=== PATIENT | female | born 1950 | race Caucasian/White ===

== ENCOUNTER 2019-10-15 19:55 | Inpatient (IN) | payer OTHER ==
[~2019-10-15] VITALS: Ht 157.5 cm; Wt 82.9 kg
[2019-10-15 19:59] VITALS: BP 144/59
[2019-10-15] MEDS ORDERED: MUCINEX600 MG PO (20:06)
[2019-10-15] MEDS ORDERED: CELEXA 20 MG TA20 MG PO (20:06)
[2019-10-15] MEDS ORDERED: SUPER THERAVIT1 EACH PO (20:07)
[2019-10-15] MEDS ORDERED: PROBIOTIC1 EAC7 PO (20:07)
[2019-10-15] MEDS ORDERED: VITAMIN D400 UNIT PO (20:07)
[2019-10-15] MEDS ORDERED: VITAMIN C500 M2 PO (20:08)
[2019-10-15 21:09] LABS: ABSOLUTE BASOPHILS 0.1 thou/uL (0.0-0.2); ABSOLUTE EOSINOPHILS 0.1 thou/uL (0.0-0.7); ABSOLUTE LYMPHOCYTES 1.3 thou/uL (0.8-5.3); ABSOLUTE MONOCYTES 0.9 thou/uL (0.0-1.2); ABSOLUTE NEUTROPHILS 11.4 thou/uL (1.6-8.1); BASOPHILS 1.1 %; EOSINOPHILS 0.7 %; HEMATOCRIT 37.8 % (37.0-47.0); HEMOGLOBIN 12.7 gm/dL (12.0-15.0); LYMPHOCYTES 9.3 %; MCH 28.8 pg (26.0-34.0); MCHC 33.6 g/dL (28.0-37.0); MCV 85.8 fL (80.0-100.0); MONOCYTES 6.3 %; MPV 8.7 fl. (7.2-11.1); NUCLEATED RBCS 0 /100WBC; PLATELET COUNT* 433 thou/uL (150-400); POLYS 82.6 %; RBC 4.41 mil/uL (4.20-5.00); RDW-CV 13.5 % (10.5-14.5); WBC 13.8 thou/uL (4.0-11.0)
[2019-10-15 21:19] LABS: INR 1.1; PROTIME 11.2 Seconds (9.20-11.50)
[2019-10-15 21:20] LABS: INFLUENZA A ANTIGEN Negative (Negative); INFLUENZA B ANTIGEN Negative (Negative)
[2019-10-15 22:07] LABS: POTASSIUM 3.1 mmol/L (3.5-5.1)
[2019-10-15 22:08] LABS: ALBUMIN 3.3 g/dL (3.4-5.0); CALCIUM 9.8 mg/dL (8.5-10.1); CREATININE 0.8 mg/dL (0.6-1.3); TOTAL BILIRUBIN 0.5 mg/dL (<0.1-1.0); TOTAL PROTEIN 7.5 g/dL (6.4-8.2)
[2019-10-15 23:15] VITALS: BP 130/77
[2019-10-16] VITALS (7 sets, daily range): BP systolic 114–139; BP diastolic 44–62
[2019-10-16] MEDS ORDERED: PROAIR HFA8.5 GM INH (00:03)
--- NOTE | 2019-10-16 08:22 | NUR ---
REPORT RECEIVED FROM MARGARITO IN ED. PT ARRIVED TO ROOM 228 PER CART. AMBULATED TO BED WITH STEADY GAIT. O2 SAT 90% ON ROOM AIR. PT DID NOT BRING CPAP. PLACED ON 2L O2- WITH O2 SAT AROUND 92%. VERIFIED MEDS AND NURSING ASSESSMENT COMPLETE. MEN'S GARMENT FITTER SAID FOR MEDS TO BE STARTED ON DAYSHIFT. PT WAS ABLE TO REST THROUGH MOST OF NIGHT. CALL LIGHT IN REACH. HOURLY ROUNDING FOR SAFETY.
--- NOTE | 2019-10-16 12:12 | EKG ---
[place] [address] ELECTROCARDIOGRAM REPORT Name: PEARL MARCANO Room: [address] ADM IN M.R.#: [id number] Admission: 10/15/19 Attend Phys: Beka Quiroz Discharge: Date of : 54 Report #: [id number] THIS REPORT FOR: //name// [facility] ED Test Date: 2019-10-15 Test Time: 20:05:16 Pat Name: PEARL MARCANO Department: Room: [facility] Gender: F Sales Floor Team Leader: GIULIANA : 1950 Requested By: Argentina Hicks Order Number: [id number] MD: Delano Glaser Measurements Intervals [place] Rate: 80 P: 61 MN: 130 QRS: 27 QRSD: 89 T: 80 QT: 378 QTc: 436 Interpretive Statements Sinus rhythm Nonspecific repol abnormality, diffuse leads No previous ECG available for comparison Electronically Signed On 10-16-2019 12:12:27 JOURNALISM PROFESSOR by Delano Glaser [email or web address] <ELECTRONICALLY SIGNED> By: Delano Glaser MD, [facility] 10/16/19 1212 04 04 Delano Glaser MD, FACC /EPI
--- NOTE | 2019-10-16 13:34 | NUR ---
ASSUMED CARE OF PT AT 0730. PT RESTING IN BED. A&0X4, COMPLAINS OF HEADACHE-TREATED WITH PRN TYLENOL WITH RELIEF. TRACING SB/SR ON THE BILLBOARD POSTER HELPER. ON 2L NC SAT 95%. COARSE, WHEEZY LUNG SOUNDS NOTED. PT UP AD JESSICA. GOAL FOR TODAY IS TITRATE OXYGEN, IV ANTIBIOTICS AND STEROIDS AND REPLACE POTASSIUM PER ELECTROLYTE PROTOCOL. AM ASSESSMENT CHARTED. MEDICATIONS PER JAN. PT REPOSITIONS SELF. HOURLY ROUNDING OBSERVED. BED IN LOW POSITION. CALL LIGHT WITHIN REACH. WILL CONTINUE PLAN OF CARE.
--- NOTE | 2019-10-16 13:49 | NUR ---
MET WITH PT TO DISCUSS HOME SITUATION/DC PLANNING. PT LIVES WITH SON, FAMILY IS SUPPORTIVE. PT IS NORMALLY INDEPENDENT AND ACTIVE, USES NEBULIZER. SHE DOES NOT HAVE HOME O2. PT HAS DONE OUTPT PULMONARY REHAB IN THE PAST BUT STATED SHE COULD 'RIDE HER BIKE AT HOME.' PT PLANS TO RETURN HOME AT DC.
--- NOTE | 2019-10-16 19:39 | NUR ---
NO ACUTE CHANGES THROUGHOUT SHIFT. REFER TO CHARTING. DAUGHTER HERE THIS AFTERNOON AND UPDATED ON CURRENT PLAN OF CARE. NEW IV PLACED TO RIGHT FOREARM 20G. POTASSIUM BEING REPLACED PER ELECTROLYTE PROTOCOL. REFER TO EMAR. PT STARTED ON IV VANC AND STEROIDS. DENIES ANY PAIN THIS AFTERNOON. CONTINUES TO BE ON 2L NC SAT UPPER 90'S. CONTINUES TO TRACE SR ON THE FOUNTAIN BRUSH ASSEMBLER. UP AD JESSICA. MEDICATIONS PER JAN. PT REPOSITIONS SELF. HOURLY ROUNDING OBSERVED. BED IN LOW POSITION. CALL LIGHT WITHIN REACH. WILL CONTINUE PLAN OF CARE.
[2019-10-17 02:33] LABS: URINE BILIRUBIN NEGATIVE (Negative); URINE BLOOD NEGATIVE (Negative); URINE CLARITY CLEAR; URINE COLOR YELLOW; URINE GLUCOSE-RANDOM NEGATIVE (Negative); URINE KETONES NEGATIVE (Negative); URINE LEUKOCYTES-REFLEX NEGATIVE (Negative); URINE NITRITE-REFLEX NEGATIVE (Negative); URINE PROTEIN NEGATIVE (Negative); URINE UROBILINOGEN 0.2 E.U./dl (0.2-1.0)
[2019-10-17 04:00] VITALS: BP 128/57
[2019-10-17 05:10] LABS: HEMATOCRIT 37.3 % (37.0-47.0); HEMOGLOBIN 12.2 gm/dL (12.0-15.0); MCH 28.6 pg (26.0-34.0); MCHC 32.6 g/dL (28.0-37.0); MCV 87.6 fL (80.0-100.0); MPV 8.8 fl. (7.2-11.1); NUCLEATED RBCS 0 /100WBC; PLATELET COUNT* 501 thou/uL (150-400); RBC 4.25 mil/uL (4.20-5.00); RDW-CV 13.6 % (10.5-14.5)
[2019-10-17 05:14] LABS: CALCIUM 10.7 mg/dL (8.5-10.1); POTASSIUM 5.9 mmol/L (3.5-5.1)
[2019-10-17 06:29] LABS: ABSOLUTE LYMPHOCYTES 1.9 thou/uL (0.8-5.3); ABSOLUTE MONOCYTES 0.5 thou/uL (0.0-1.2); ABSOLUTE NEUTROPHILS 21.6 thou/uL (1.6-8.1); METAMYELOCYTES 1 %; MYELOCYTES 1 %; PLATELET ESTIMATE ADEQUATE
--- NOTE | 2019-10-17 06:57 | NUR ---
PT WAS ABLE TO REST THROUGH THE NIGHT. K+ REPLACED. NO RESPIRATORY DISTRESS NOTED OR OBSERVED. TRACING SR ON MONITOR. CALL LIGHT IN REACH, NO HOURLY ROUNDING FOR SAFETY.
[2019-10-17 08:00] VITALS: BP 125/61
[2019-10-17 11:28] VITALS: BP 131/54
--- NOTE | 2019-10-17 12:01 | NUR ---
ASSUMED CARE OF PATIENT THIS AM AT 0730. PATIENT IS ALERT AND ORIENTED X 4. SHE DENIES PAIN AND DISCOMFORT. SHE HAS BEEN UP TO THE BATHROOM INDEPENDENTLY. TELE SHOWS CHICHIRIrene DIAMOND IN TO ROUND AND TRANSFER ORDERS WRITTEN. SPECIMEN SENT TO LAB PER ORDER. PATIENT IS RESTING AT THIS TIME. CALL LIGHT IS IN REACH.
[2019-10-17 20:00] VITALS: BP 134/63
[2019-10-18 00:30] VITALS: BP 135/57
--- NOTE | 2019-10-18 02:22 | NUR ---
PT DENIES ANY SOA. NO REPIRATORY DISTRESS REPORTED OR OBSERVED. TYLENOL EFFECTIVE FOR GIVENS. PT STATES THAT SHE IS "FEELING MUCH BETTER." FAMILY WAS VISITING PRIOR TO BEDTIME. PT IN GOOD SPIRITS. CALL LIGHT IN REACH. HOURLY ROUNDING FOR SAFETYY.
[2019-10-18 04:35] LABS: ABSOLUTE LYMPHOCYTES 1.1 thou/uL (0.8-5.3); ABSOLUTE MONOCYTES 0.8 thou/uL (0.0-1.2); ABSOLUTE NEUTROPHILS 20.9 thou/uL (1.6-8.1); BASOPHILS 0.1 %; HEMATOCRIT 36.3 % (37.0-47.0); HEMOGLOBIN 11.9 gm/dL (12.0-15.0); MCH 28.9 pg (26.0-34.0); MCHC 32.8 g/dL (28.0-37.0); MCV 88.1 fL (80.0-100.0); MONOCYTES 3.7 %; MPV 8.1 fl. (7.2-11.1); NUCLEATED RBCS 0 /100WBC; PLATELET COUNT* 514 thou/uL (150-400); POLYS 91.2 %; RBC 4.12 mil/uL (4.20-5.00); RDW-CV 13.6 % (10.5-14.5)
[2019-10-18 05:22] LABS: ALBUMIN 2.9 g/dL (3.4-5.0); CALCIUM 10.2 mg/dL (8.5-10.1); TOTAL BILIRUBIN 0.2 mg/dL (<0.1-1.0); TOTAL PROTEIN 6.8 g/dL (6.4-8.2)
[2019-10-18 05:29] LABS: POTASSIUM 4.8 mmol/L (3.5-5.1)
[2019-10-18 08:00] VITALS: BP 127/50
[2019-10-18 12:38] VITALS: BP 135/53
--- NOTE | 2019-10-18 12:54 | NUR ---
ASSUMED CARE OF PATIENT THIS AM AT 0730. PATIENT REMAINS ALERT AND ORIENTED. SHE C/O BEING FATIGUED TODAY. SHE CONTINUES TO HAVE A COARSE COUGH. DR IN TO ROUND AND ORDERS PLACED. PATIENT GIVEN PO MEDICATION FOR COUGH. REST PERIODS PROVIDED. IV ANTIBIOTICS CONTINUED.
[2019-10-18 19:50] VITALS: BP 144/55
[2019-10-18 23:50] VITALS: BP 146/69
[2019-10-19 04:59] LABS: ABSOLUTE BASOPHILS 0.1 thou/uL (0.0-0.2); ABSOLUTE LYMPHOCYTES 1.1 thou/uL (0.8-5.3); ABSOLUTE MONOCYTES 0.6 thou/uL (0.0-1.2); ABSOLUTE NEUTROPHILS 17.3 thou/uL (1.6-8.1); BASOPHILS 0.3 %; HEMATOCRIT 37.4 % (37.0-47.0); HEMOGLOBIN 12.3 gm/dL (12.0-15.0); MCH 28.6 pg (26.0-34.0); MCHC 32.8 g/dL (28.0-37.0); MCV 87.4 fL (80.0-100.0); MONOCYTES 3.3 %; MPV 8.1 fl. (7.2-11.1); NUCLEATED RBCS 0 /100WBC; PLATELET COUNT* 490 thou/uL (150-400); POLYS 90.4 %; RBC 4.28 mil/uL (4.20-5.00); RDW-CV 13.8 % (10.5-14.5); WBC 19.1 thou/uL (4.0-11.0)
[2019-10-19 05:17] LABS: CALCIUM 10.3 mg/dL (8.5-10.1); CREATININE 1.1 mg/dL (0.6-1.3); POTASSIUM 5.4 mmol/L (3.5-5.1); TOTAL BILIRUBIN 0.2 mg/dL (<0.1-1.0); TOTAL PROTEIN 6.7 g/dL (6.4-8.2)
[2019-10-19 08:15] VITALS: BP 140/64
[2019-10-19 08:38] VITALS: BP 140/64
[2019-10-19 12:09] VITALS: BP 129/55
--- NOTE | 2019-10-19 12:21 | NUR ---
VSS, ASSUMED CARE IN THE AM ASSESSMENT PERFORMED AND CHARTED, FALL PRECAUTIONS IN PLACE AND CALL LIGHT IN REACH, PT IS A&O4 AND IS UP AD JESSICA AND IS M/S ON STATUS, PT DENIES ANY PAIN AND IS PLANNING TO GO HOME TODAY, WILL FOLLOW WITH PLAN OF CARE.
[2019-10-19 12:47] LABS: CALCIUM 10.3 mg/dL (8.5-10.1); CREATININE 1.2 mg/dL (0.6-1.3); PHOSPHORUS* 4.3 mg/dL (2.5-4.9)
[2019-10-19 17:45] VITALS: BP 153/60
--- NOTE | 2019-10-19 18:02 | NUR ---
PT ARRIVED TO FLOOR ABOUT 174 FROM TELE. PT STABLE. VITALS STABLE. IV PATENT. ON 1LO2. UP AD JESSICA. DENIED PAIN. DENIED N/V. CALL LIGHT WITHIN REACH. WILL CONTINUE TO MONITOR.
[2019-10-19 19:45] VITALS: BP 148/51
[2019-10-19 20:00] VITALS: BP 148/51
[2019-10-20 04:43] LABS: HEMOGLOBIN 12.1 gm/dL (12.0-15.0); MCH 28.8 pg (26.0-34.0); MCHC 32.6 g/dL (28.0-37.0); MCV 88.3 fL (80.0-100.0); MPV 8.3 fl. (7.2-11.1); NUCLEATED RBCS 0 /100WBC; PLATELET COUNT* 457 thou/uL (150-400); RBC 4.19 mil/uL (4.20-5.00); RDW-CV 13.8 % (10.5-14.5); WBC 16.7 thou/uL (4.0-11.0)
[2019-10-20 04:50] LABS: CALCIUM 9.9 mg/dL (8.5-10.1); POTASSIUM 5.1 mmol/L (3.5-5.1)
[2019-10-20 05:50] LABS: ABSOLUTE LYMPHOCYTES 1.5 thou/uL (0.8-5.3); ABSOLUTE MONOCYTES 0.2 thou/uL (0.0-1.2); PLATELET ESTIMATE INCREASED
[2019-10-20 05:51] LABS: ANISOCYTOSIS 1+; POIKILOCYTOSIS 1+
[2019-10-20 08:00] VITALS: BP 120/55
--- NOTE | 2019-10-20 08:06 | NUR ---
PATIENT HAS SLEPT WELL THROUGHOUT THE NIGHT. VSS ON 1L 02 VIA NASAL CANNULA. MEDICATIONS GIVEN ORDERED AND CHARTED. IV IN LEFT HAND-SL. PATIENT INSTRUCTED TO USE CALL LIGHT WHEN NEEDING ASSISTANCE. HOURLY ROUNDS MADE. WILL CONTINUE WITH PLAN OF CARE AND NURSING TO MONITOR.
[2019-10-20 15:59] VITALS: BP 141/60
--- NOTE | 2019-10-20 17:56 | NUR ---
PT UP IN ROOM WITH STEADY GAIT. PT O2 SATS MID 90S ON RA BUT DECREASE TO LOW 80S IF AMBULATING MORE THAN 10 FT. PT DENIES PAIN. TOLERATING PO WELL. VOIDING WELL
[2019-10-20 20:50] VITALS: BP 123/51
--- NOTE | 2019-10-21 07:24 | NUR ---
PATIENT HAS SLEPT WELL THROUGHOUT THE NIGHT. VSS ON 2L 02 VIA NASAL CANNULA AT NIGHT. LUNGS SOUND CLEAR. MEDICATIONS GIVEN ORDERED AND CHARTED. IV IN LEFT HAND-SL. PATIENT INSTRUCTED TO USE CALL LIGHT WHEN NEEDING ASSISTANCE. HOURLY ROUNDS MADE. WILL CONTINUE WITH PLAN OF CARE AND NURSING TO MONITOR.
[2019-10-21 13:03] VITALS: BP 123/51
--- NOTE | 2019-10-21 13:35 | NUR ---
PT.TO DISCHARGE TODAY. PER R.TIreneSATS SHE WILL REQUIRE O2 AT 1L/NC WITH ACTIVITY. DISCUSSED WITH HER. SHE WAS DISAPPOINTED THAT SHE WOULD NEED O2. TOLD HER IT WOULD MOST LIKELY BE SHORT TERM. SHE CHOSE [facility] FOR HER HOME O2 CO. , THEY CONTRACT WITH HER INSURANCE. SHE WILL BE STAYING AT HER DAUGHTERS HOUSE IN [place] FOR A FEW DAYS. TOOK DAUGHTERS ADDRESS. PT.WORRIED THAT CONCENTRATOR WILL BE HARD TO MOVE BACK TO HER HOUSE. TOLD HER ISATU/DEJON WILL DISCUSS WHEN SHE BRINGS HER PORTABLE TANK. FAXED FACE SHEET, SERVICE ADDRESS, SATS, ORDER ,H&P AND 10/20 PROGRESS NOTE TO ISATU. SHE WILL DELIVER PORTABLE TANK TO PTS.ROOM SHORTLY.
[2019-10-21 13:49] VITALS: BP 123/51
--- NOTE | 2019-10-21 15:07 | NUR ---
ASSUMED CARE OF PATIENT AT APPROX 0730. ALERT AND ORIENTED X4. ASSESSMENT COMPLETED AND CHARTED. VSS ON ROOM AIR. SOA UPON EXERTION. REST AND EXERCISE COMPLETED, 1 LITER NEEDED WITH ACTIVITY, NONE NEEDED AT REST. PATIENT DISCHARGED AT 1510 WITH ALL PERSONAL BELONGINGS, PRESCRIPTIONS AND DISCHARGE INFORMATION.
== END 2019-10-21 15:10 | disposition home or self-care (01) | DRG 871 ==
LOC: M.ERS 19:55 → M.2W 21:35 → M.TBA-ER 21:35 → M.2W 23:34 → M.ORTHSURG 10-19 18:03
PROVIDERS: Emergency Medicine; Internal Medicine; ADMIT Family Medicine
PROC: 5A09357 Assistance with Respiratory Ventilation, Less than 24 Consecutive Hours, Continuous Positive Airway Pressure (ICD-10-PCS; principal; 2019-10-17)
DX: A41.9 Sepsis, unspecified organism (principal); J96.00 Acute respiratory failure, unspecified whether with hypoxia or hypercapnia; J15.6 Pneumonia due to other Gram-negative bacteria; J44.1 Chronic obstructive pulmonary disease with (acute) exacerbation; J44.0 Chronic obstructive pulmonary disease with (acute) lower respiratory infection; Z79.899 Other long term (current) drug therapy; Z88.5 Allergy status to narcotic agent; Z88.0 Allergy status to penicillin; Z87.891 Personal history of nicotine dependence

== ENCOUNTER 2019-12-10 13:48 | Inpatient (IN) | payer OTHER ==
[~2019-12-10] VITALS: Ht 157.5 cm; Wt 81.2 kg
--- NOTE | ~2019-12-10 | EKG ---
[place] [address] ELECTROCARDIOGRAM REPORT Name: KATIENAYELIPEARL Room: [facility] ADM IN ..#: [id number] Admission: 12/10/19 Attend Phys: Zack Mead Discharge: Date of : 54 Date of Service: 12/10/19 1429 Report #: [id number] THIS REPORT FOR: cc: Nash Fernandez Matthew DO Epiphany, Epiphany MD ~ THIS REPORT FOR: //name// [facility] ED Test Date: 2019-12-10 Test Time: 14:29:13 Pat Name: PEARL MARCANO Department: Room: [facility] Gender: F [place] [employer] Chief Librarian: SOILA : 1950 Requested By: Oziel Montiel Order Number: [id number] MD: Measurements Intervals [place] Rate: 86 P: 75 IL: 153 QRS: 44 QRSD: 85 T: 55 QT: 369 QTc: 442 Interpretive Statements Sinus rhythm Compared to ECG 10/15/2019 20:05:16 Early repolarization no longer present [email or web address] By: 1429 1429 Epiphany Epiphany, /MATIAS
--- NOTE | ~2019-12-10 | EKG ---
[place] [address] ELECTROCARDIOGRAM REPORT Name: PEARL MARCANO Room: [place] [address] ADM IN ..#: [id number] Admission: 12/10/19 Attend Phys: Zack Mead Discharge: Date of : 54 Date of Service: 12/11/19 0831 Report #: [id number] THIS REPORT FOR: cc: Nash Fernandez Matthew DO Epiphany, Epiphany MD ~ THIS REPORT FOR: //name// [facility] Test Date: 2019-12-11 Test Time: 08:31:21 Pat Name: PEARL MARCANO Department: Room: [facility] Gender: F [employer] Fscm Developer: KATYA : 1950 Requested By: Dara Kirkpatrick Order Number: [id number] Reading MD: Measurements Intervals [place] Rate: 69 P: 58 IN: 120 QRS: 52 QRSD: 90 T: 114 QT: 435 QTc: 466 Interpretive Statements Sinus rhythm Nonspecific T abnormalities, lateral leads Compared to ECG 10/15/2019 20:05:16 T-wave abnormality now present Early repolarization no longer present [email or web address] By: 0 0 Epiphany Epiphany, /MATIAS
[~2019-12-10 13:48] MED LIST: CELEXA 20 MG TA20 MG PO; MUCINEX600 MG PO; PROAIR HFA8.5 GM INH; PROBIOTIC1 EAC7 PO; SUPER THERAVIT1 EACH PO; VITAMIN C500 M2 PO; VITAMIN D400 UNIT PO
[2019-12-10 13:54] VITALS: BP 127/64
[2019-12-10 14:32] LABS: ABSOLUTE BASOPHILS 0.1 thou/uL (0.0-0.2); ABSOLUTE EOSINOPHILS 0.1 thou/uL (0.0-0.7); ABSOLUTE LYMPHOCYTES 0.7 thou/uL (0.8-5.3); ABSOLUTE MONOCYTES 0.4 thou/uL (0.0-1.2); ABSOLUTE NEUTROPHILS 5.5 thou/uL (1.6-8.1); BASOPHILS 0.9 %; EOSINOPHILS 0.8 %; HEMATOCRIT 37.2 % (37.0-47.0); HEMOGLOBIN 12.5 gm/dL (12.0-15.0); LYMPHOCYTES 9.9 %; MCHC 33.6 g/dL (28.0-37.0); MCV 86.2 fL (80.0-100.0); MONOCYTES 6.4 %; MPV 8.2 fl. (7.2-11.1); NUCLEATED RBCS 0 /100WBC; PLATELET COUNT* 231 thou/uL (150-400); RBC 4.32 mil/uL (4.20-5.00); RDW-CV 15.2 % (10.5-14.5); WBC 6.7 thou/uL (4.0-11.0)
[2019-12-10 14:41] LABS: CALCIUM 8.9 mg/dL (8.5-10.1); CREATININE 0.7 mg/dL (0.6-1.3)
[2019-12-10 14:42] LABS: APTT 26.2 Seconds (25.0-31.3); INR 1.1; PROTIME 10.9 Seconds (9.20-11.50)
[2019-12-10 14:51] LABS: ALBUMIN 3.3 g/dL (3.4-5.0); MAGNESIUM 1.7 mg/dL (1.8-2.4); TOTAL BILIRUBIN 0.4 mg/dL (<0.1-1.0)
[2019-12-10 17:00] VITALS: BP 135/72
--- NOTE | 2019-12-10 17:15 | 2DMMODE ---
[place] [address] 2 D/M-MODE ECHOCARDIOGRAM Name: PEARL MARCANO Room: [place] [address] ADM IN .R.#: [id number] Admission: 12/10/19 Attend Phys: Zack Mead Discharge: Date of : 54 Date of Service: 12/10/19 1714 Report #: [id number] THIS REPORT FOR: cc: Nahs Fernandez,Nash Dior,Jeffery Frias MD [facility] ~ THIS REPORT FOR: //name// APPROVED REPORT Study performed: 12/10/2019 16:29:47 EXAM: Comprehensive 2D, Doppler, and color-flow Echocardiogram Patient Location: ER BSA: 1.83 HR: 86 bpm BP: 126/73 mmHg Other Information Study Quality: Technically Difficult Technically limited study due to body habitus. Indications Dyspnea 2D Dimensions IVSd: 10.57 (7-11mm) LVOT Diam: 21.28 (18-24mm) LVDd: 42.20 mm PWd: 10.39 (7-11mm) Ascending Ao: 28.97 (22-36mm) LVDs: 31.16 (25-40mm) Aortic Root: 26.86 mm Volumes Left Atrial Volume (Systole) LA ESV Index: 17.90 mL/m2 Aortic Valve AoV Peak Nic.: 1.09 m/s AO Peak Gr.: 4.73 mmHg LVOT Max P.10 mmHg AO Mean Gr.: 2.71 mmHg LVOT Mean P.70 mmHg LVOT Max V: 0.88 m/s AO V2 VTI: 19.04 cm LVOT Mean V: 0.61 m/s JENNIFER (VTI): 3.61 cm2 LVOT V1 VTI: 19.32 [place] [address] 2 D/M-MODE ECHOCARDIOGRAM Name: PEARL MARCANO Room: [place] [address] ADM IN .R.#: [id number] Admission: 12/10/19 Attend Phys: Zack Mead Discharge: Date of : 54 Date of Service: 12/10/19 1714 Report #: [id number] Mitral Valve E/A Ratio: 0.71 MV Decel. Time: 169.90 ms MV E Max Nic.: 0.83 m/s MV PHT: 49.27 ms MVA (PHT): 4.47 cm2 TDI E/Lateral E': 16.60 E/Medial E': 13.83 Medial E' Nic.: 0.06 m/s Lateral E' Nic.: 0.05 m/s Pulmonary Valve PV Peak Nic.: 0.81 m/s PV Peak Gr.: 2.65 mmHg Tricuspid Valve RAP Estimate: 5.00 mmHg TR Peak Gr.: 18.04 mmHg RVSP: 23.04 mmHg PA Pressure: 23.04 mmHg Left Ventricle The left ventricle is normal size. The apex and mid to distal lateral wall appear hypokinetic. There is normal left ventricular wall thickness. Left ventricular systolic function is mildly decreased. LVEF is 40%. Grade I - abnormal relaxation pattern. Right Ventricle The right ventricle is normal size. The right ventricular systolic function is normal. Atria The left atrium size is normal. The right atrium size is normal. Aortic Valve The aortic valve is normal in structure. No aortic regurgitation is present. There is no aortic valvular stenosis. Mitral Valve The mitral valve is normal in structure. Trace mitral regurgitation. No evidence of mitral valve stenosis. Tricuspid Valve The tricuspid valve is normal in structure. Trace [place] [address] 2 D/M-MODE ECHOCARDIOGRAM Name: PEARL MARCANO Room: [address] IN [facility]#: [id number] Admission: 12/10/19 Attend Phys: Zack Mead Discharge: Date of : 54 Date of Service: 12/10/19 1714 Report #: [id number] Pulmonic Valve The pulmonary valve is normal in structure. There is no pulmonic valvular regurgitation. Great Vessels The aortic root is normal in size. IVC is normal in size and collapses >50% with inspiration. Pericardium Trace pericardial effusion. No echo indications of pericardial tamponade. <Conclusion> The left ventricle is normal size. There is normal left ventricular wall thickness. Left ventricular systolic function is mildly decreased. LVEF is 40%. Grade I - abnormal relaxation pattern. The apex and mid to distal lateral wall appear hypokinetic. Trace mitral regurgitation. Trace tricuspid regurgitation. Trace pericardial effusion. No echo indications of pericardial tamponade. <ELECTRONICALLY SIGNED> By: Jeffery Mccrary MD, FACC 12/10/191713 13 13 Jeffery Mccrary MD, FACC /INF
[2019-12-10 17:33] LABS: CHOLESTEROL 198 mg/dL (<200); HDL CHOLESTEROL 34 mg/dL (>40); LDL CHOLESTEROL 136 mg/dL (<100); SERUM ASSESSMENT Clear; TC:HDL 5.8 Ratio (Not establshd); TRIGLYCERIDE 141 mg/dL (<150); VLDL 28 mg/dL (<40)
[2019-12-10 19:50] VITALS: BP 115/41
[2019-12-10] MEDS ORDERED: OMEPRAZOLE40 MG PO (21:40)
[2019-12-11] VITALS (14 sets, daily range): BP systolic 97–146; BP diastolic 34–68
[2019-12-11 01:19] LABS: ABSOLUTE LYMPHOCYTES 0.9 thou/uL (0.8-5.3); ABSOLUTE MONOCYTES 0.1 thou/uL (0.0-1.2); ABSOLUTE NEUTROPHILS 3.3 thou/uL (1.6-8.1); BASOPHILS 0.6 %; HEMATOCRIT 35.5 % (37.0-47.0); LYMPHOCYTES 20.9 %; MCH 29.3 pg (26.0-34.0); MCHC 33.8 g/dL (28.0-37.0); MCV 86.6 fL (80.0-100.0); MONOCYTES 2.8 %; MPV 8.7 fl. (7.2-11.1); NUCLEATED RBCS 0 /100WBC; PLATELET COUNT* 249 thou/uL (150-400); POLYS 75.7 %; RDW-CV 15.2 % (10.5-14.5); WBC 4.4 thou/uL (4.0-11.0)
[2019-12-11 01:25] LABS: CALCIUM 9.3 mg/dL (8.5-10.1); POTASSIUM 4.4 mmol/L (3.5-5.1)
[2019-12-11 11:35] LABS: ABSOLUTE LYMPHOCYTES 0.9 thou/uL (0.8-5.3); ABSOLUTE MONOCYTES 0.7 thou/uL (0.0-1.2); ABSOLUTE NEUTROPHILS 6.8 thou/uL (1.6-8.1); BASOPHILS 0.2 %; HEMATOCRIT 34.4 % (37.0-47.0); HEMOGLOBIN 11.7 gm/dL (12.0-15.0); MCH 29.2 pg (26.0-34.0); MCHC 33.8 g/dL (28.0-37.0); MCV 86.3 fL (80.0-100.0); MONOCYTES 8.8 %; MPV 8.8 fl. (7.2-11.1); NUCLEATED RBCS 0 /100WBC; PLATELET COUNT* 259 thou/uL (150-400); RBC 3.99 mil/uL (4.20-5.00); RDW-CV 15.4 % (10.5-14.5); WBC 8.5 thou/uL (4.0-11.0)
[2019-12-11 12:12] LABS: INR 1.1; PROTIME 11.4 Seconds (9.20-11.50)
--- NOTE | 2019-12-11 16:46 | CON ---
[address] [address] CONSULTATION Name: PEARL MARCANO Room: [address] IN .R.#: [id number] Admission: 12/10/19 Attend Phys: Juve Madison Discharge: Date of : 54 Report #: [id number] THIS REPORT FOR: //name// cc: Nash Fernandez Matthew DO ~ THIS REPORT FOR: //name// CC: Nash Mead DATE OF SERVICE: 12/11/2019 CARDIOLOGY CONSULTATION HISTORY OF PRESENT ILLNESS: The patient is a 69-year-old single white female with COPD, who I was asked to see in the hospital after she complained of chest pain. The patient previously smoked a pack of cigarettes a day for 30 years. She quit about 10 years ago. She has a history of COPD and has a nebulizer at home. She has had multiple hospitalizations for exacerbations of her COPD. She was actually here at [place] a month ago with an exacerbation. She was sent home. She saw her primary care physician recently with a cough. She was placed back on steroids and antibiotics, which she recently finished. The last several days, she has had increasing shortness of breath and a cough. She felt diaphoretic. Last night, she felt heaviness in her chest. There is no radiation of the pain. She denied any radiation of the pain to swallowing. She has had no bleeding, swelling of her feet. She notes occasional irregular heartbeat, but no syncope. PAST MEDICAL HISTORY: She had a hysterectomy. No history of hypertension, diabetes. She has been told in the past, her cholesterol was high. MEDICATIONS: Her only medications at this time include Celexa, Prilosec, a nebulizer. ALLERGIES: SHE HAS AN ALLERGY TO PENICILLIN AND CODEINE. FAMILY HISTORY: Her father had bypass surgery. SOCIAL HISTORY: She is twice. She lives in independent with her son. No longer smokes. No alcohol abuse. REVIEW OF SYSTEMS: She has had no history of stroke, peptic ulcer disease, liver disease, kidney disease, cancer, psychiatric illness, chronic skin condition. PHYSICAL EXAMINATION: GENERAL: Revealed a middle-aged female, who appeared in no distress. VITAL SIGNS: She had a blood pressure of 120/60, her pulse was 80, she is afebrile. HEENT: She was anicteric. Conjunctivae are pink. Mucous members appear dry. NECK: Veins do not appear distended. No carotid bruits. CHEST: No expiratory wheezes. CARDIOVASCULAR: Regular rate and rhythm, no murmur. ABDOMEN: Soft. EXTREMITIES: Had no edema. Posterior tibial pulse 1+. SKIN: Cool and dry. NEUROLOGIC: Nonfocal. LYMPH: No adenopathy. MUSCULOSKELETAL: No joint effusion. RADIOLOGICAL DATA: Her ECG on admission showed a sinus rhythm with no significant ST or T-wave change. Her workup, she had a portable chest x-ray that showed normal heart size, clear lung buchanan, calcification of the aorta, no infiltrate. Pulmonary nodules were noted. She had a CT scan of the chest using a PE protocol that showed evidence of a pulmonary embolus, hyperinflated lung buchanan. She had a CT scan in October that showed no evidence of pulmonary embolus. LABORATORY WORK: Sodium 138, creatinine 1.0, glucose 276. SGOT 68, SGPT 75. Her troponin was 0.23, this morning is 1.16. BNP 89. Recent cholesterol 198, triglyceride 141, HDL 34, LDL 136. Her white blood cell count 4.4, hematocrit 35.5. She had an echocardiogram done yesterday that showed an ejection fraction of 40%, apical hypokinesis. IMPRESSION AND RECOMMENDATIONS: 1. Chest pain. Possible unstable angina. Recommend cardiac catheterization. 2. Cardiomyopathy. Possible secondary to coronary artery disease. 3. Evidence of pulmonary embolus. The patient is on heparin. 4. Previous tobacco abuse. 5. Chronic obstructive pulmonary disease. 6. Elevated glucose. Suspect glucose intolerance. 7. Hyperlipidemia. <ELECTRONICALLY SIGNED> By: Jonathan Dow MD, FACC 12/11/19 1646 0811 0824Jonathan Dow MD, FACC /nt
[2019-12-12] VITALS (7 sets, daily range): BP systolic 131–142; BP diastolic 51–70
[2019-12-12 05:03] LABS: ABSOLUTE LYMPHOCYTES 1.2 thou/uL (0.8-5.3); ABSOLUTE MONOCYTES 0.5 thou/uL (0.0-1.2); ABSOLUTE NEUTROPHILS 7.2 thou/uL (1.6-8.1); BASOPHILS 0.1 %; HEMATOCRIT 32.8 % (37.0-47.0); HEMOGLOBIN 11.2 gm/dL (12.0-15.0); LYMPHOCYTES 13.3 %; MCH 29.6 pg (26.0-34.0); MCHC 34.1 g/dL (28.0-37.0); MONOCYTES 6.1 %; MPV 8.1 fl. (7.2-11.1); NUCLEATED RBCS 0 /100WBC; PLATELET COUNT* 266 thou/uL (150-400); POLYS 80.5 %; RBC 3.77 mil/uL (4.20-5.00); RDW-CV 15.3 % (10.5-14.5); WBC 8.9 thou/uL (4.0-11.0)
[2019-12-12 05:14] LABS: ALBUMIN 2.9 g/dL (3.4-5.0); CALCIUM 8.7 mg/dL (8.5-10.1); CREATININE 0.8 mg/dL (0.6-1.3); POTASSIUM 4.7 mmol/L (3.5-5.1); TOTAL BILIRUBIN 0.2 mg/dL (<0.1-1.0); TOTAL PROTEIN 6.3 g/dL (6.4-8.2)
[2019-12-13] VITALS: BP 131/67
[2019-12-13 02:07] LABS: GLYCOHEMOGLOBIN (HGB A1C) 5.8 % (4.8-5.6)
[2019-12-13 04:00] VITALS: BP 144/54
[2019-12-13 08:00] VITALS: BP 154/71
[2019-12-13 12:28] VITALS: BP 134/64
[2019-12-13 16:00] VITALS: BP 135/57
[2019-12-13 20:36] VITALS: BP 132/82
[2019-12-14 00:55] VITALS: BP 130/63
[2019-12-14 04:00] VITALS: BP 134/69
[2019-12-14 08:00] VITALS: BP 107/40
[2019-12-14] MEDS ORDERED: PREDNISONE 10 M10 MG PO (13:01)
[2019-12-14] MEDS ORDERED: LIPITOR 40 MG T40 M1 PO (13:01)
[2019-12-14] MEDS ORDERED: ELIQUIS5 MG PO (13:01)
[2019-12-14] MEDS ORDERED: ASA81BEC PO (13:51)
[2019-12-14 14:04] VITALS: BP 107/40
[2019-12-14 14:27] VITALS: BP 107/40
--- NOTE | 2019-12-16 17:17 | CARD ---
[address] [address] CARDIAC CATH REPORT Name: PEARL MARCANO Room: [address] IN [facility]#: [id number] Admission: 12/10/19 Attend Phys: Juve Madison Discharge: 12/14/19 Date of : 54 Report #: [id number] THIS REPORT FOR: //name// cc: Nash Fernandez Matthew DO ~ THIS REPORT FOR: //name// ADDENDUM APPROVED REPORT Study performed: 12/11/2019 08:19:40 Patient Details Patient Status: In-Patient Room #: The patient is a 69 year-old female Event Personnel Jonathan Dow Power Machine Operator, Galen Arnold QUALITY REP Monitor, Yamila Cobb RTR Scrub, Hamilton Valderrama RTR Scrub, Mara Jewell complex manager Performed cath Indication Abnormal ECG, Non-STEMI , Dyspnea, Atypical chest pain , Cardiomyopathy Risk Factors Chronic Lung DiseaseHypercholesterolemia, Tobacco History () Procedure Narrative The patient was brought electively to the Cardiac Catheterization Laboratory and was prepped and draped in a sterile manner. The right wrist was infiltrated with 1% Lidocaine subcutaneous anesthesia. A Slender Glidesheath sheath was inserted into the right radial artery. Coronary angiography was performed using coronary diagnostic catheters. The right coronary system was accessed and visualized with a JR4 5fr catheter. The left coronary system was accessed and visualized with a JL 3.5 5fr catheter. The left ventricle was accessed and visualized with a PC: Angled Pig 5fr catheter. Left ventricular/Aortic Valve gradient assessed via catheter pullback. Left ventriculogram was performed in CISNEROS projection. Closure device was deployed with a 6 Fr Vasc-Band Reg 24cm. The patient tolerated the procedure well and there were [place] [address] CARDIAC CATH REPORT Name: PEARL MARCANO Room: [address]#: [id number] Admission: 12/10/19 Attend Phys: Juve Madison Discharge: 12/14/19 Date of : 54 Report #: [id number] the procedure. There was no hematoma. Intraoperative Conscious Sedation No sedation given. Procedure start time 09:24 am. Procedure end time 09:48 am. Fluoro Time: 2.0 minutes Dose: DAP 95824 cGycm2 449 mGy Contrast Type and Amount: Omnipaque 120 ml Coronary Angiography The patient's coronary anatomy is right dominant. [place] Percent Stenosis Left Main: 0 % Prox LAD: 0 % Mid/Distal LAD: 60 % Circumflex: 0 % RCA: 0 % Ramus: % Left Ventriculography The left ventricular ejection fraction is estimated to be 40-45%. Left ventricular wall motion abnormalities are present. There is no mitral insufficiency. severe hypokinesis noted of the mid anterior wall and mid inferior wall Hemodynamics The aortic pressure is 111/55 mmHg with a mean of 80 mmHg. The left ventricular pressure is 111/10 mmHg with a mean of mmHg. The left ventricular end diastolic pressure is 14 mmHg. There was no gradient across the aortic valve upon pullback. Pullback from the left ventricle to the aorta revealed no gradient across the aortic valve. Conclusion 1. minimal CAD with 60% stenosis of the mid LAD 2. mild cardiomyopathy with ef of 40-45% Recommendations Aggressive Medical Therapy <ELECTRONICALLY SIGNED> By: Jonathan Dow MD, FACC 12/16/19 1716 15 1716Jonathan Dow MD, FACC /INF
== END 2019-12-14 14:42 | disposition home or self-care (01) | DRG 280 ==
LOC: M.ERS 13:48 → M.TBA-ER 15:19 → M.2W 15:19
PROVIDERS: Emergency Medicine Emergency Medical Services; Internal Medicine Cardiovascular Disease; Registered Nurse; ADMIT Internal Medicine
DX: I21.A1 Myocardial infarction type 2 (principal); I26.99 Other pulmonary embolism without acute cor pulmonale; J80 Acute respiratory distress syndrome; J44.1 Chronic obstructive pulmonary disease with (acute) exacerbation; I42.9 Cardiomyopathy, unspecified; F32.9 Major depressive disorder, single episode, unspecified; E11.9 Type 2 diabetes mellitus without complications; I25.10 Atherosclerotic heart disease of native coronary artery without angina pectoris; E78.5 Hyperlipidemia, unspecified; Z87.01 Personal history of pneumonia (recurrent); Z88.5 Allergy status to narcotic agent; Z88.0 Allergy status to penicillin; Z79.899 Other long term (current) drug therapy; Z87.891 Personal history of nicotine dependence; Z90.710 Acquired absence of both cervix and uterus

== ENCOUNTER 2019-12-25 08:07 | Observation (INO) | payer OTHER ==
[~2019-12-25] VITALS: Ht 157.5 cm; Wt 78.0 kg
[~2019-12-25 08:07] MED LIST changes: +ASA81BEC PO; +ELIQUIS5 MG PO; +LIPITOR 40 MG T40 M1 PO; +OMEPRAZOLE40 MG PO; +PREDNISONE 10 M10 MG PO
[2019-12-25 08:10] VITALS: BP 149/59
[2019-12-25 08:35] LABS: ABSOLUTE BASOPHILS 0.1 thou/uL (0.0-0.2); ABSOLUTE LYMPHOCYTES 3.3 thou/uL (0.8-5.3); ABSOLUTE MONOCYTES 1.1 thou/uL (0.0-1.2); ABSOLUTE NEUTROPHILS 10.4 thou/uL (1.6-8.1); BASOPHILS 0.4 %; HEMATOCRIT 39.6 % (37.0-47.0); HEMOGLOBIN 13.2 gm/dL (12.0-15.0); MCH 29.1 pg (26.0-34.0); MCHC 33.3 g/dL (28.0-37.0); MCV 87.4 fL (80.0-100.0); MONOCYTES 7.2 %; MPV 7.8 fl. (7.2-11.1); NUCLEATED RBCS 0 /100WBC; PLATELET COUNT* 408 thou/uL (150-400); POLYS 70.4 %; RBC 4.53 mil/uL (4.20-5.00); RDW-CV 15.9 % (10.5-14.5); WBC 14.8 thou/uL (4.0-11.0)
[2019-12-25 08:40] LABS: CALCIUM 8.8 mg/dL (8.5-10.1); CREATININE 0.8 mg/dL (0.6-1.3); POTASSIUM 4.3 mmol/L (3.5-5.1)
[2019-12-25 08:44] LABS: APTT 21.9 Seconds (25.0-31.3); PROTIME 10.5 Seconds (9.20-11.50)
[2019-12-25 08:50] LABS: ALBUMIN 3.3 g/dL (3.4-5.0); TOTAL BILIRUBIN 0.4 mg/dL (<0.1-1.0); TOTAL PROTEIN 6.6 g/dL (6.4-8.2)
--- NOTE | 2019-12-25 09:46 | EKG ---
[place] [address] ELECTROCARDIOGRAM REPORT Name: PEARL MARCANO Malcolm Room: [facility]#: [id number] Admission: 12/25/19 Attend Phys: Discharge: Date of : 54 Date of Service: 12/25/19811 Report #: [id number] THIS REPORT FOR: //name// [facility] ED Test Date: 2019-12-25 Test Time: 08:12:31 Pat Name: PEARL MARCANO Department: Room: Gender: F Australian Rules Footballer: [facility] : 1950 Requested By: Ange Hill Order Number: [id number] MD: Delano Glaser Measurements Intervals [place] Rate: 57 P: 65 AR: 149 QRS: 56 QRSD: 91 T: 123 QT: 424 QTc: 413 Interpretive Statements Sinus rhythm Abnormal T, consider ischemia, lateral leads Compared to ECG 12/11/2019 08:31:21 Possible ischemia now present T-wave abnormality still present Electronically Signed On 12-25-2019 9:45:45 POSTBED STITCHER by Delano Glaser [email or web address] <ELECTRONICALLY SIGNED> By: Delano Glaser MD, FACC 12/25/19 0945 1 1 Delano Glaser MD, [facility] /EPI
[2019-12-25 12:08] VITALS: BP 130/57
--- NOTE | 2019-12-25 12:21 | NUR ---
FULL NURSING REPORT GIVEN TO WATER [employer] SEWER SYSTEMS SUPERINTENDENT NURSE WITH VERBAL UNDERSTANDING. PT TRANSFERRED VIA STRETCHER TO WATER AND SEWER SYSTEMS SUPERINTENDENT
--- NOTE | 2019-12-25 14:55 | CARD ---
[address] [address] CARDIAC CATH REPORT Name: PEARL MARCANO Room: [address] Lenin Stewart#: [id number] Admission: 12/25/19 Attend Phys: Delano Glaser MD, Discharge: Date of : 54 Report #: [id number] THIS REPORT FOR: //name// cc: Nash Fernandez Matthew DO ~ THIS REPORT FOR: //name// APPROVED REPORT Study performed: 12/25/2019 11:49:32 Patient Details The patient is a 69 year-old female Event Personnel Delano Glaser Sheep Or Calf Grader, Negra Olivares RN Punch Hand, Galen Arnold ScrLy hansen Becki RTR Monitor Procedures Performed Left heart catheterization selective coronary artery and percutaneous coronary intervention to the mid LAD and second diagonal branch Indication Unstable angina Risk Factors Obesity, Hypercholesterolemia, Hypertension Admission/Lab Medications/Medications given during procedure Angiomax bolus and infusion Procedure Narrative The patient was brought urgently to the Cardiac Catheterization Laboratory and was prepped and draped in a sterile manner. The right femoral was infiltrated with 2% Lidocaine subcutaneous anesthesia. A [place] 6 FR sheath was inserted into the right femoral artery. Coronary angiography was performed using coronary diagnostic catheters. The right coronary system was accessed and visualized with a Diagnostic catheter. The left coronary system was accessed and visualized with a 6F XB LAD 3.5 catheter. The left ventricle was accessed and visualized with a Diagnostic- Str PIG pressures only catheter. Left ventricular/Aortic Valve gradient assessed via catheter pullback. Pre-demployment femoral angiogram was performed . Closure device was deployed with a Fr Angioseal STS 6Fr[place] [address] CARDIAC CATH REPORT Name: PEARL MARCANO Room: [address]#: [id number] Admission: 12/25/19 Attend Phys: Delano Glaser MD, Discharge: Date of : 54 Report #: [id number] hematoma. Intraoperative Conscious Sedation Sedation start time: 1231 Case end Time: 1315 Versed 2 mg Fluoro Time: 13.4 minutes Dose: DAP 92096 cGycm2 819 mGy Contrast Type and Amount: Visipaque 275 ml Diagnostic Cath Left Main 0% narrowing LAD 80% mid vessel stenosis with 70% narrowing at the ostium of the second diagonal branch Circumflex 0% narrowing Right Coronary Dominant vessel with 0% narrowing as defined by recent catheterization Left Ventriculography Left Ventriculography was not performed. Hemodynamics The aortic pressure is 141/64 mmHg with a mean of 94 mmHg. The left ventricular pressure is 139/3 mmHg with a mean of mmHg. The left ventricular end diastolic pressure is 24 mmHg. PCI Technique Lesion Anticoagulation was achieved with Angiomax. Patient was preloaded with Angiomax IV 12 ml. Percutaneous coronary intervention was performed on the mid left anterior descending artery segment. The lesion stenosis prior to intervention was 80% with ELE 3 flow. A 6F XB LAD 3.5 Guide Catheter was used to engage the ostium. A IG: BMW 190cm Interventional Guidewire was used to cross the lesion. BALLOON DILATION A Balloon catheter Trek RX 2.5 X 12 was inserted and inflated up to 16.00atm for 11seconds. STENT DEPLOYMENT A stent Xience Lisa 3.0X15mm was inserted and inflated up to 12.00atm for 7seconds. Additional Inflation: 15.00atm for 7seconds. Additional Inflation: 15.00atm for 7seconds. 16 anyi for 9 sec Final angiography reveals 0 % stenosis with ELE [place] [address] CARDIAC CATH REPORT Name: PEARL MARCANO Room: [address] Pat#: [id number] Admission: 12/25/19 Attend Phys: Delano Glaser MD, Discharge: Date of : 54 Report #: [id number] COMMENTS The PCI was complex by virtue the bifurcation LAD diagonal lesion requiring multiple wires and rewiring of the diagonal branch through the LAD stent for optimization of the result. BALLOON DILATION A Balloon catheter was inserted and inflated up to 12.00atm for 7seconds. Additional Inflation: 14atm for 5seconds. 2nd diag ostium PCI Technique Lesion 2 Percutaneous Coronary Intervention was performed on the second diagnonal branch segment. The lesion stenosis prior to intervention was 70% with ELE 3 flow. Balloon Dilation A Balloon catheter Mini Trek RX 2.0 X 8 was inserted and inflated up to 14atm for 10seconds. Final angiography reveals 10 % stenosis with ELE 3 flow. Conclusion #1 significant coronary artery disease characterized by the following: A 80% mid LAD stenosis with 70% ostial second diagonal narrowing #2 moderate elevation of left ventricular end-diastolic pressure at rest #3 successful PCI with deployment of a drug-eluting stent at site of 80% mid LAD stenosis with 0% residual narrowing and ELE-3 flow to the distal vessel #4 successful PTCA at the ostium of the second diagonal branch of the LAD with 10% residual narrowing and ELE-3 flow to the distal diagonal Recommendations Cardiac Risk Reduction Program Aggressive Medical Therapy Medications Administered Aspirin (any) [place] [address] CARDIAC CATH REPORT Name: PEARL MARCANO Room: [address]#: [id number] Admission: 12/25/19 Attend Phys: Delano Glaser MD, Discharge: Date of : 54 Report #: [id number] Prasugrel Diagnostic Cath Approved by: Delano Glaser MD Date/Time: 12/25/2019 14:50:23 <ELECTRONICALLY SIGNED> By: Delano Galser MD, [facility] 12/25/19 1454 1454 [id number] Glaser MD, [facility] /INF
[2019-12-25 18:39] VITALS: BP 130/57
[2019-12-25 19:40] VITALS: BP 119/46
[2019-12-25 19:53] VITALS: BP 158/97
--- NOTE | 2019-12-25 20:11 | NUR ---
ASSUMED PT CARE AT ABOUT 1700 FROM ACADEMY DIRECTOR. ASSESSMENT COMPLETED CHARTED. ABLE TO MAKE NEEDS KNOWN. ON BEDREST TILL 7PM, TENTATIVELY. RIGHT GROIN SITE BLEED A LITTLE, HELD PRESSURE FOR 10 MINS AND OUTLINED GAUZE TO MONITOR BLEEDING. RESTING IN BED COMFORTABLY. FAMILY AT BEDSIDE. NO C/O PAIN OR DISCOMFORT. IV FLUIDS RUNNING PER EMAR. CALL LIGHT WITHIN REACH. WILL CONTINUE TO MONITOR.
--- NOTE | 2019-12-25 23:25 | NUR ---
[facility] ASSESMENT COMPLATED AT 1940. PT ON BEDREST POST CARDIAC CATHETERIZATION. RIGHT GROIN SOFT, NO BRUISING OR HEMATOMA. PT INSTRUCTED TO LAY FLAT WITH RIGHT LEG STRAIGHT UNTIL MIDNIGHT. PT INSTRUCTED TO CALL MURSE IF BLEEDING OR SWELLING OCCUR AT SITE. PT INSTRUCTED TO SPLINT RIGHT GROIN SIGHT BEFORE COUGHING OR BEARING DOWN. CALL LIGHT IN REACH, PT DEMONSTRATES PROPER USE.
[2019-12-26 00:12] VITALS: BP 121/52
[2019-12-26 04:33] VITALS: BP 126/45
[2019-12-26 04:40] LABS: HEMATOCRIT 35.9 % (37.0-47.0); HEMOGLOBIN 11.9 gm/dL (12.0-15.0); MCHC 33.1 g/dL (28.0-37.0); MCV 87.6 fL (80.0-100.0); MPV 7.8 fl. (7.2-11.1); RBC 4.1 mil/uL (4.20-5.00); RDW-CV 16.2 % (10.5-14.5); WBC 13.7 thou/uL (4.0-11.0)
[2019-12-26 05:05] LABS: ALBUMIN 2.8 g/dL (3.4-5.0); ALKALINE PHOSPHATASE 52 U/L (46-116); ANION GAP 7 mmol/L (7-16); CALCIUM 8.3 mg/dL (8.5-10.1); CHLORIDE 104 mmol/L (98-107); CHOLESTEROL 202 mg/dL (<200); CO2 29 mmol/L (21-32); CREATININE 0.8 mg/dL (0.6-1.3); GLUCOSE 81 mg/dL (70-99); HDL CHOLESTEROL 38 mg/dL (>40); LDL CHOLESTEROL 124 mg/dL (<100); POTASSIUM 4.1 mmol/L (3.5-5.1); SGOT 15 U/L (15-37); SGPT 29 U/L (30-65); SODIUM 140 mmol/L (136-145); TC:HDL 5.3 Ratio (Not establshd); TOTAL BILIRUBIN 0.5 mg/dL (<0.1-1.0); TOTAL PROTEIN 5.6 g/dL (6.4-8.2); TRIGLYCERIDE 201 mg/dL (<150); TROPONIN-I LEVEL 0.46 ng/mL (<0.06); VLDL 40 mg/dL (<40)
[2019-12-26 05:21] LABS: BUN 23 mg/dL (7-18)
[2019-12-26 05:34] LABS: SERUM ASSESSMENT Clear
--- NOTE | 2019-12-26 05:47 | NUR ---
PT OFF BEDREST AT 2330 LAST NIGHT. PT'S GROIN SITE SOFT, NO BLEEDING , BRUISING OR HEMATOMA. VITAL SIGNS WITHIN NORMAL LIMITS DURING SHIFT. WILL CONTINUE PLAN OF CARE.
[2019-12-26 08:00] VITALS: BP 151/59
--- NOTE | 2019-12-26 10:43 | H ---
[place] [address] HISTORY AND PHYSICAL Name: PEARL MARCANO Room: [address] M.R.#: [id number] Admission: 12/25/19 Attend Phys: Delano Glaser MD, Discharge: Date of : 54 Report #: [id number] THIS REPORT FOR: //name// cc: Nash Fernandez Matthew DO ~ THIS REPORT FOR: //name// CC: Dara Hill DATE OF SERVICE: 12/25/2019 CARDIOLOGY ADMITTING HISTORY AND PHYSICAL HISTORY OF PRESENT ILLNESS: The patient is a pleasant 69-year-old female with COPD and coronary artery disease. Recent catheterization revealed a moderately-severe mid LAD lesion involving the diagonal. Prior echocardiogram had shown a wall motion abnormality with anterolateral hypokinesis. It was elected not to intervene at that time, but since the procedure, she has continued to experience dyspnea and chest discomfort. Over the preceding week, she notes daily chest pain with episodes of pressure remitting within 5-15 minutes after rest. She has not utilized the prescribed nitrates and has had essentially daily episodes for the last several days. She denies protracted bouts of pain and there has been no associated nausea or diaphoresis. There is accompanying dyspnea. The patient's risk factors for coronary disease include significant prior cigarette smoking history and hyperlipidemia. PAST MEDICAL HISTORY: Remarkable for COPD. MEDICATIONS: Included inhaled albuterol, Eliquis 5 mg b.i.d., ascorbic acid 500 mg daily, aspirin 81 mg daily, vitamin D3 of 400 units daily, Celexa 20 mg daily, Mucinex 600 mg b.i.d., Prilosec 40 mg daily, Deltasone or prednisone ____ tablets 40 mg daily, probiotic 1 tablet daily, ____, metoprolol succinate 25 mg daily. SOCIAL HISTORY: Has a significant prior cigarette smoking history. REVIEW OF SYSTEMS: Remarkable for dyspnea and chest discomfort with exertion. PHYSICAL EXAMINATION: GENERAL: Reveals a mildly tachypneic, overweight, middle-aged female. VITAL SIGNS: Blood pressure is 140/70, pulse rate is 56, respirations are 18 [place] [address] HISTORY AND PHYSICAL Name: PEARL MARCANO [address] [id number] Admission: 12/25/19 Attend Phys: Delano Glaser MD, Discharge: Date of : 54 Report #: [id number] NECK: Jugular venous pressure is normal. CHEST: Reveals decreased breath sounds diffusely with rare end-expiratory wheezes. CARDIAC: Reveals a regular rhythm with a soft systolic murmur. ABDOMEN: Moderately obese. EXTREMITIES: Reveal intact radial, femoral and posterior tibial pulses. IMPRESSION: 1. Unstable angina. 2. Coronary artery disease with moderately-severe mid left anterior descending stenosis by recent cath involving the takeoff of a prominent diagonal. 3. Hyperlipidemia. 4. Chronic obstructive pulmonary disease. 5. Exogenous obesity. RECOMMENDATIONS: Given the aforementioned clinical scenario with known coronary disease, a pattern of unstable angina, I would recommend cardiac catheterization with strong consideration of intervention to the LAD and prominent diagonal. This has been discussed with the patient and family. CRITICAL CARE TIME: 35 minutes from 10:50 to 11:25. <ELECTRONICALLY SIGNED> By: Delano Glaser MD, [facility] 12/26/19 1043 1127 [id number] Glaser MD, FAC /nt
[2019-12-26] MEDS ORDERED: EFFIENT10 MG PO (10:49)
[2019-12-26] MEDS ORDERED: LIPITOR10 MG PO (10:50)
[2019-12-26 10:58] VITALS: BP 130/57
--- NOTE | 2019-12-26 12:30 | NUR ---
ASSUMED PT CARE AT 0730. ASSESSMENT COMPLETED CHARTED. ABLE TO MAKE NEEDS KNOWN. RESTING IN BED MOST OF THE DAY. NO C/O PAIN OR DISCOMFORT. RIGHT GROIN SITE C/D/I WITH NEW BANDAID IN PLACE, DISCHARGE APPROVED AND DISCHARGE PACKET, MEDS, AND MED INFO GIVEN TO PT. IV AND HEART MONITOR REMOVED. NO COMMENTS, QUESTIONS OR CONCERNS NOTED. PT TOOK ALL BELONGINGS WITH HER. LEFT IN WHEELCHAIR VIA STAFF AND FAMILY IN TOW AT 1228.
--- NOTE | 2019-12-27 15:02 | EKG ---
[place] [address] ELECTROCARDIOGRAM REPORT Name: PEARL MARCANO Room: [address] M.R.#: [id number] Admission: 12/25/19 Attend Phys: Kalani Melendez Discharge: 12/26/19 Date of : 54 Date of Service: 12/25/19 1430 Report #: [id number] THIS REPORT FOR: //name// [facility] Test Date: 2019-12-25 Test Time: 14:30:06 Pat Name: PEARL MARCANO Department: Room: [facility] Gender: F Supervisor Shuttle Fitting: : 1950 Requested By: Delano Glaser Order Number: [id number] Reading MD: Manjeet Moran Measurements Intervals [place] Rate: 60 P: 76 SC: 132 QRS: 50 QRSD: 106 T: 111 QT: 417 QTc: 417 Interpretive Statements Sinus rhythm Abnormal T, consider ischemia, lateral leads Compared to ECG 12/25/2019 08:12:31 No significant changes Electronically Signed On 12-27-2019 15:01:30 COLORER by Manjeet Moran [email or web address] <ELECTRONICALLY SIGNED> By: Shivani Moran MD, [facility] 12/27/19 1501 1430 1430 Shivani Moran MD, [facility] /EPI
--- NOTE | 2020-01-01 11:29 | D ---
[address] [address] DISCHARGE SUMMARY Name: JEETPEARL Malcolm Room: [address] Lenin M.RIrene#: [id number] Admission: 12/25/19 Attend Phys: Delano Glaser MD, Discharge: 12/26/19 Date of : 54 Report #: [id number] THIS REPORT FOR: //name// cc: Nash Fernandez Matthew DO ~ THIS REPORT FOR: //name// CC: Delano Hernandezpablo Newgina Nicholsie Sergio DATE OF SERVICE: 12/25/2019 FINAL DISCHARGE DIAGNOSES: 1. Unstable angina. 2. Coronary artery disease. 3. Status post percutaneous coronary intervention with stenting of the mid left anterior descending and angioplasty of the second diagonal. 4. Hyperlipidemia. 5. Chronic obstructive pulmonary disease. 6. Exogenous obesity. 7. Question history of recent pulmonary embolus. PROCEDURES: On 12/25/2019 -- left heart catheterization, selective coronary arteriography and percutaneous coronary intervention with stenting of the mid LAD and angioplasty of the second diagonal. HOSPITAL COURSE: The patient is a pleasant 69-year-old female with hyperlipidemia, COPD, and weight excess. She presented 2 weeks ago with chest pain and was found to have moderately severe mid LAD lesion. It was not approached in that setting. She did have an associated wall motion abnormality with anterolateral hypokinesis. She presented again to the ER yesterday with chest pain occurring on a daily basis, lasting for 5-15 minutes and remitting spontaneously. Nitrates were not used as they caused headaches. She has been continued on aspirin and was on beta blockade. She has significant underlying COPD with recent pneumonia and has been on bronchodilators as well as steroids. In the context of recurrent chest pain compatible with unstable angina, I performed catheterization on 12/26/2019, which revealed 80% mid LAD stenosis with 70-80% ostial second diagonal narrowing. I placed one 3.0 x [place] [address] DISCHARGE SUMMARY Name: PEARL MARCANO Room: [address] [place] Stewart#: [id number] Admission: 12/25/19 Attend Phys: Delano Glaser MD, Discharge: 12/26/19 Date of : 54 Report #: [id number] drug-eluting stent in the mid LAD and dilated the ostium of the diagonal through the stent with a 2.0 x 8 mm mini Trek inflated to 14 atmospheres. There was 0% residual LAD narrowing and 10% residual first diagonal narrowing and ELE-3 flow to the distal vessel. Troponin juanis minimally to 0.46. She ambulated in the hallways without difficulty with good hemostasis at the right femoral site of catheterization. LABORATORY DATA: On 12/26/2019 revealed sodium 140, potassium 4.1, BUN 23, creatinine 0.8, glucose 81. Hemoglobin 11.9, white blood cell count 13,700, and platelets 308,000. Cholesterol was 202, triglycerides 201, LDL 124, HDL 38 mg percent. DISCHARGE MEDICATIONS: The patient was discharged to home on the following medications: Apixaban/Eliquis 5 mg b.i.d. in light of the question of peripheral pulmonary embolus noted 2 weeks ago, ascorbic acid 500 mg daily, enteric-coated aspirin 81 mg daily, probiotic one tablet daily, vitamin D3 400 units daily, Celexa 20 mg daily, Mucinex 600 mg b.i.d., multivitamins with mineral 1 tablet daily, omeprazole 40 mg at bedtime, prasugrel/Effient 10 mg daily with a 60 mg deny-procedural dose having been given, prednisone 10 mg daily, and atorvastatin 40 mg at bedtime. FOLLOWUP: She is scheduled to return to see my nurse practitioner in 7-10 days and myself in 4 weeks. Thus, the patient is discharged to home in stable condition on the aforementioned medications with followup as iterated above. FINAL DIAGNOSES: 1. Unstable angina. 2. Coronary artery disease. 3. Hyperlipidemia. 4. Chronic obstructive pulmonary disease. 5. Exogenous obesity. <ELECTRONICALLY SIGNED> By: Delano Glaser MD, [facility] 01/01/20 1129 1038 [id number] Glaser MD, FAC /nt
== END 2019-12-26 12:30 | disposition home or self-care (01) ==
LOC: M.CL 08:07 → M.ERS 08:07 → M.TBA-CV 12:08 → M.ERS 12:10 → M.CL 12:36 → M.TBA-CV 12:36 → M.2W 17:15
PROVIDERS: Personal Emergency Response Attendant; ADMIT Internal Medicine
DX: I25.110 Atherosclerotic heart disease of native coronary artery with unstable angina pectoris (principal); E78.5 Hyperlipidemia, unspecified; J44.9 Chronic obstructive pulmonary disease, unspecified; E66.09 Other obesity due to excess calories

== ENCOUNTER 2021-06-28 04:33 | Inpatient (IN) | payer OTHER ==
[~2021-06-28] VITALS: Ht 157.5 cm; Wt 83.0 kg
[~2021-06-28 04:33] MED LIST changes: +EFFIENT10 MG PO; +LIPITOR10 MG PO
[2021-06-28 04:40] VITALS: BP 150/64
[2021-06-28 05:21] LABS: ABSOLUTE BASOPHILS 0.1 thou/uL (0.0-0.2); ABSOLUTE EOSINOPHILS 0.1 thou/uL (0.0-0.7); ABSOLUTE LYMPHOCYTES 1.5 thou/uL (0.8-5.3); ABSOLUTE MONOCYTES 0.9 thou/uL (0.0-1.2); ABSOLUTE NEUTROPHILS 8.4 thou/uL (1.6-8.1); BASOPHILS 0.8 %; EOSINOPHILS 0.9 %; HEMATOCRIT 35.1 % (37.0-47.0); HEMOGLOBIN 11.6 gm/dL (12.0-15.0); LYMPHOCYTES 13.4 %; MCH 27.9 pg (26.0-34.0); MCV 84.4 fL (80.0-100.0); MONOCYTES 8.2 %; MPV 8.1 fl. (7.2-11.1); NUCLEATED RBCS 0 /100WBC; PLATELET COUNT* 372 thou/uL (150-400); POLYS 76.7 %; RBC 4.16 mil/uL (4.20-5.00); RDW-CV 14.7 % (10.5-14.5); WBC 10.9 thou/uL (4.0-11.0)
[2021-06-28 05:40] LABS: CALCIUM 9.2 mg/dL (8.5-10.1); CREATININE 0.9 mg/dL (0.6-1.3); POTASSIUM 3.2 mmol/L (3.5-5.1)
[2021-06-28 05:51] LABS: ALBUMIN 3.4 g/dL (3.4-5.0); TOTAL BILIRUBIN 0.3 mg/dL (<0.1-1.0); TOTAL PROTEIN 6.5 g/dL (6.4-8.2)
[2021-06-28 06:48] LABS: BE 1.2 mmol/L (-2 to +3); PCO2 42.3 mmHg (35.0-45.0); PO2 80.6 mmHg (75.0-100.0); pH 7.407 (7.340-7.450)
[2021-06-28 10:00] VITALS: BP 146/48
--- NOTE | 2021-06-28 10:19 | EKG ---
[place] [address] ELECTROCARDIOGRAM REPORT Name: PEARL MARCANO Room: [address] M..#: [id number] Admission: 06/28/21 Attend Phys: Rocio Thomas Discharge: Date of : 54 Date of Service: 06/28/21 0456 Report #: [id number] THIS REPORT FOR: //name// [facility] ED Test Date: 2021-06-28 Test Time: 04:56:14 Pat Name: PEARL MARCANO Department: Room: [facility] Gender: F Lining Mechanic: ILDA : 1950 Requested By: Ange Hill Order Number: [id number] MD: Jonathan Dow Measurements Intervals [place] Rate: 80 P: 69 WI: 136 QRS: 29 QRSD: 82 T: 69 QT: 399 QTc: 461 Interpretive Statements Sinus rhythm Ventricular trigeminy Nonspecific repol abnormality, diffuse leads Compared to ECG 12/25/2019 14:30:06 Ventricular premature complex(es) now present Electronically Signed On 06-28-2021 10:19:29 CDT by Jonathan Dow [email or web address] <ELECTRONICALLY SIGNED> By: Jonathan Dow MD, FAC 06/28/21 1019 0456 0456 Jonathan Dow MD, [facility] /EPI
[2021-06-28 14:00] VITALS: BP 129/66
[2021-06-28 18:00] VITALS: BP 122/56
[2021-06-28 21:26] VITALS: BP 135/67
[2021-06-28 22:00] VITALS: BP 123/53
[2021-06-29 00:33] VITALS: BP 126/54
[2021-06-29 04:53] VITALS: BP 125/55
[2021-06-29 05:20] LABS: HEMATOCRIT 32.8 % (37.0-47.0); HEMOGLOBIN 10.6 gm/dL (12.0-15.0); MCH 27.7 pg (26.0-34.0); MCHC 32.2 g/dL (28.0-37.0); MPV 8.2 fl. (7.2-11.1); NUCLEATED RBCS 0 /100WBC; PLATELET COUNT* 369 thou/uL (150-400); RBC 3.82 mil/uL (4.20-5.00); RDW-CV 14.8 % (10.5-14.5)
[2021-06-29 05:33] LABS: CALCIUM 9.3 mg/dL (8.5-10.1); CREATININE 0.8 mg/dL (0.6-1.3)
[2021-06-29 06:21] LABS: ABSOLUTE LYMPHOCYTES 1.3 thou/uL (0.8-5.3); ABSOLUTE NEUTROPHILS 12.7 thou/uL (1.6-8.1); PLATELET ESTIMATE ADEQUATE
[2021-06-29 08:00] VITALS: BP 116/57
[2021-06-29 12:00] VITALS: BP 158/70
--- NOTE | 2021-06-29 15:14 | NUR ---
Pt is A&O. Resides at home with son. Independent. Pt has a walker and cane that she can use for mobility. No home o2. No hx of HH or SNF. Goal is home at dc, no needs anticipate. Pt currently on 2L, will continue to wean, ex ox at dc. Dr to speak with Pt regarding Remdisivir. Anticipate dc in a few days.
[2021-06-29 16:00] VITALS: BP 155/63
[2021-06-29 20:00] VITALS: BP 130/59
[2021-06-30 00:08] LABS: INFLUENZA A ANTIGEN Negative (Negative); INFLUENZA B ANTIGEN Negative (Negative)
[2021-06-30 02:33] VITALS: BP 126/54
[2021-06-30 05:58] VITALS: BP 137/54
[2021-06-30 06:02] LABS: HEMATOCRIT 33.3 % (37.0-47.0); HEMOGLOBIN 10.7 gm/dL (12.0-15.0); MCH 27.9 pg (26.0-34.0); MCHC 32.3 g/dL (28.0-37.0); MCV 86.3 fL (80.0-100.0); MPV 8.3 fl. (7.2-11.1); RBC 3.85 mil/uL (4.20-5.00); RDW-CV 14.6 % (10.5-14.5); WBC 19.5 thou/uL (4.0-11.0)
[2021-06-30 06:46] LABS: ALBUMIN 2.8 g/dL (3.4-5.0); CREATININE 0.9 mg/dL (0.6-1.3); MAGNESIUM 1.9 mg/dL (1.8-2.4); TOTAL BILIRUBIN 0.2 mg/dL (<0.1-1.0); TOTAL PROTEIN 6.4 g/dL (6.4-8.2)
[2021-06-30 06:47] LABS: POTASSIUM 5.3 mmol/L (3.5-5.1)
[2021-06-30 07:45] VITALS: BP 123/58
[2021-06-30 12:00] VITALS: BP 136/59
[2021-06-30 16:00] VITALS: BP 140/74
--- NOTE | 2021-06-30 16:03 | NUR ---
POC UPDATE: BARRIERS TO DC IS PT CONT ON IV ABX AND STEROIDS. POSSIBLE SAT D/C.
--- NOTE | 2021-06-30 18:33 | NUR ---
ASSUMED CARE OF PT AT 0730. PT A&0X4, ON 2L NC UPON INITIAL ASSESSMENT-PT TITRATED TO RA SAT MID 90'S. DENIES ANY SHORTNESS OF BREATH OR PAIN. TRACING SR ON THE DESIZING PAD OPERATOR. PT UP AD JESSICA IN ROOM. PROBABLE DISCHARGE HOME JACINTO 07/01. NO BOWEL MOVEMENTS THIS SHIFT-ISOLATION MAINTAINED. AM ASSESSMENT CHARTED. MEDICATIONS PER JAN. PT REPOSITIONS SELF. HOURLY ROUNDING OBSERVED. BED IN LOW POSITION. CALL LIGHT WITHIN REACH. WILL CONTINUE PLAN OF CARE.
[2021-06-30 20:00] VITALS: BP 159/61
[2021-07-01 00:59] VITALS: BP 142/54
[2021-07-01 04:12] LABS: HEMATOCRIT 33.9 % (37.0-47.0); HEMOGLOBIN 10.9 gm/dL (12.0-15.0); MCH 27.2 pg (26.0-34.0); MCHC 32.2 g/dL (28.0-37.0); MCV 84.5 fL (80.0-100.0); MPV 8.4 fl. (7.2-11.1); RBC 4.01 mil/uL (4.20-5.00); WBC 17.8 thou/uL (4.0-11.0)
[2021-07-01 04:51] LABS: ALBUMIN 2.8 g/dL (3.4-5.0); CALCIUM 9.7 mg/dL (8.5-10.1); CREATININE 0.9 mg/dL (0.6-1.3); POTASSIUM 4.5 mmol/L (3.5-5.1); TOTAL BILIRUBIN 0.2 mg/dL (<0.1-1.0); TOTAL PROTEIN 6.3 g/dL (6.4-8.2)
--- NOTE | 2021-07-01 04:54 | NUR ---
PT ALERT ORINENTED. UP AD JESSICA IN ROOM. PT IN ISO FOR CDIFF. STOOL COLLECTED AND SENT TO LAB. ASSEMBLY CLEANER TRACING ACCELERATED JUNCTIONAL. ON RA. BREATH SOUNDS WITH WHEEZES THROUGHOUT.
[2021-07-01 05:41] VITALS: BP 142/54
[2021-07-01 05:43] VITALS: BP 142/63
[2021-07-01 08:17] VITALS: BP 130/76
[2021-07-01] MEDS ORDERED: LEVOFLOXACIN500 MG PO (08:57)
[2021-07-01] MEDS ORDERED: IPRAT-ALBUT 0.5-3 ML INH (08:57)
[2021-07-01] MEDS ORDERED: PREDNISONE 10 M10 M1 PO (08:57)
[2021-07-01] MEDS ORDERED: NEBULIZER MISCELL (08:57)
[2021-07-01 14:38] VITALS: BP 130/76
== END 2021-07-01 15:09 | disposition home or self-care (01) | DRG 177 ==
LOC: M.ERS 04:33 → M.TBA-ER 06:33 → M.ORTHSURG 10:37 → M.TBA-ER 10:37 → M.ORTHSURG 22:20 → M.2W 06-30
PROVIDERS: Internal Medicine; Personal Emergency Response Attendant; ADMIT Internal Medicine; ATTEND Internal Medicine
PROC: 5A0935A Assistance with Respiratory Ventilation, Less than 24 Consecutive Hours, High Flow/Velocity Cannula (ICD-10-PCS; principal; 2021-06-29)
DX: J15.6 Pneumonia due to other Gram-negative bacteria (principal); J96.01 Acute respiratory failure with hypoxia; J44.1 Chronic obstructive pulmonary disease with (acute) exacerbation; J44.0 Chronic obstructive pulmonary disease with (acute) lower respiratory infection; I25.10 Atherosclerotic heart disease of native coronary artery without angina pectoris; Z20.822 Contact with and (suspected) exposure to COVID-19; Z79.82 Long term (current) use of aspirin; Z79.899 Other long term (current) drug therapy; Z95.5 Presence of coronary angioplasty implant and graft; Z87.891 Personal history of nicotine dependence; Z88.0 Allergy status to penicillin; Z88.5 Allergy status to narcotic agent